=== PATIENT | female | born 1985 | race Caucasian/White ===

== ENCOUNTER 2019-03-15 14:21 | Emergency (ER) | payer BC, OTHER ==
[2019-03-15 14:36] VITALS: BP 112/68
--- NOTE | 2019-03-15 14:48 | UC ---
Skin Complaint HPI - HPI Summary HPI Summary: 33-year-old female presents with complaints of a tick bite to her right hip. States she discovered a tick this morning and removed it immediately. She believes it had been on for less than 24 hours however she cannot say this with certainty and is unsure if it was engorged. Patient is 10 weeks . - History of Current Complaint Chief Complaint: UCSkin Time Seen by Provider: 03/15/19 14:31 Stated Complaint: TICK RT HIP Hx Obtained From: Patient Hx Last Menstrual Period: 12/2018 Pain Intensity: 0 - Allergy/Home Medications Allergies/Adverse Reactions: Allergies Allergy/AdvReac Type Severity Reaction Status Date / Time No Known Allergies Allergy Verified 08/15/15 19:35 Home Medications: Home Medications Pnv No.95/Ferrous Fum/Folic AC [ Caplet] 1 tab PO MDD 1 03/15/19 [ History] PMH/Surg Hx/FS Hx/Imm Hx Previously Healthy: Yes - Denies significant PMH - Surgical History Surgical History: None - Family History Known Family History: Positive: Non-Contributory - Social History Occupation: Employed Full-time Lives: With Family Alcohol Use: None Substance Use Type: None Smoking Status (MU): Never Smoked Tobacco Review of Systems All Other Systems Reviewed And Are Negative: Yes Constitutional: Negative: Fever, Chills Skin: Positive: Other - See HPI ENT: Positive: Negative Respiratory: Positive: Negative Cardiovascular: Positive: Negative Gastrointestinal: Positive: Negative Genitourinary: Positive: Negative Musculoskeletal: Negative: Arthralgia, Myalgia Neurological: Positive: Negative Is Patient Immunocompromised?: No Physical Exam - Summary Physical Exam Summary: GENERAL APPEARANCE: Well developed, well nourished, alert and cooperative, and appears to be in no acute distress. CARDIAC: Normal S1 and S2. No S3, S4 or murmurs. Rhythm is regular. There is no peripheral edema, cyanosis or pallor. Extremities are warm and well perfused. Capillary refill is less than 2 seconds. Peripheral pulses intact. LUNGS: Clear to auscultation without rales, rhonchi, wheezing or diminished breath sounds. ABDOMEN: Positive bowel sounds. Soft, nondistended, nontender. No guarding or rebound. No masses or hepatosplenomegally. MUSKULOSKELETAL: ROM intact to all extremities. No joint erythema or tenderness. Normal muscular development. Normal gait. SKIN: 1.5 cm area of erythema with central area of excoriation noted to the right posterior hip. No evidence of retained mouthparts. Triage Information Reviewed: Yes Vital Signs: Initial Vital Signs Temp 98.3 F 03/15/19 14:29 Pulse 50 03/15/19 14:29 Resp 16 03/15/19 14:29 BP 112/68 03/15/19 14:29 Pulse Ox 100 03/15/19 14:29 Vital Signs Reviewed: Yes Course/Dx - Course Course Of Treatment: 33-year-old female presents with complaints of a tick bite to her right hip. States she discovered a tick this morning and removed it immediately. She believes it had been on for less than 24 hours however she cannot say this with certainty and is unsure if it was engorged. Patient is 10 weeks . Afebrile. Vital signs stable. Exam remarkable for a 1.5 cm area of erythema with central excoriation to the right posterior hip. There was no evidence of any retained mouthparts. Since the patient is prophylactic treatment with doxycycline is not recommended at this time. I have instructed the patient to monitor for signs and symptoms of Lyme disease for the next 3 weeks. She is to seek immediate medical attention should any of these occur. Patient verbalizes understanding and agrees with plan of care. - Differential Diagnoses - Skin Complaint Differential Diagnoses: Local Allergic Reaction, Tick Born Illness - Diagnoses Provider Diagnosis: Tick bite of right hip Discharge - Sign-Out/Discharge Documenting (check all that apply): Patient Departure All imaging exams completed and their final reports reviewed: No Studies - Discharge Plan Condition: Stable Disposition: HOME Patient Education Materials: Tick Bite (ED) Referrals: No Primary Care Phys,NOPCP [Primary Care Provider] - Additional Instructions: You appear to have completely removed the tick. Since you are it is not recommended that we use the antibiotic given for prevention of Lyme disease as it may have adverse effects on the fetus. You will want to monitor of signs of Lyme disease over the next 3 weeks including a bullseye rash, fever, flu- like illness, body aches, joint pain or swelling. You should seek immediate medical attention if any of these occur. - Billing Disposition and Condition Condition: STABLE Disposition: Home
== END 2019-03-15 14:54 | disposition home or self-care (01) ==
LOC: UCEAST 14:21
DX: O26.891 Other specified pregnancy related conditions, first trimester (principal); Z3A.10 10 weeks gestation of pregnancy; T63.481A Toxic effect of venom of other arthropod, accidental (unintentional), initial encounter; Y92.9 Unspecified place or not applicable
CPT/HCPCS: 99211; G0463

== ENCOUNTER 2019-10-23 09:58 | Inpatient (IN) | payer BC ==
[2019-10-23] MEDS ORDERED: Dinoprostone* 10 MG VAG.SUPP VAGINAL ONE (11:06)
[2019-10-23] MEDS ORDERED: Lactated Ringers 1000 ML Bag* 1,000 ML IV ONE (12:06)
[2019-10-23] MEDS ORDERED: Buffered Lidocaine 1% SYRIN* 1 ML/SYRINGE INTRADERM ONE (12:06)
--- NOTE | 2019-10-23 12:16 | HP ---
General Information - Reason for Visit Post dates for induction of labor - General Information Maternal Age: 34 Grav: 1 Para: 0 SAB: 0 IEA: 0 Estimated Due Date: 10/11/19 Determined By: LMP Maternal Blood Type and Rh: O Negative - Results this Serology/RPR Result: Non-Reactive Rubella Result: Immune HBsAg Result: Negative HIV Result: Negative GBS Culture Result: Positive Past Medical History Delivery History: See Records Delivery History Comment: No previous pregnancies Pertinent Past Medical History: Non-Contributory Past Medical History Comment: Asthma, exercise induced Pertinent Past Surgical History: None Pertinent Family History: See Records Family History Comment: Lymphoma Bipolar Parkinson's - Antepartal Records Antepartal Records: Reviewed, Complicated by: - Rh negative; GBS positive; 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) Review of Systems Constitutional: Comfortable CV Complaint: No Respiratory: Shortness of Breath: No Gastrointestinal: No Nausea/Vomiting, Normal Bowel Movement Genitourinary: No Dysuria, No Bleeding, No Leaking Fluid Musculoskeletal: No Complaint Neurological: No Headache, No Visual Changes Movement: Normal Exam Allergies/Adverse Reactions: Allergies No Known Allergies Allergy (Verified 08/15/15 19:35) BP 115/87 T 98.2 HR 76 - Measurements Height: 5 ft 6.5 in Weight: 186 lb Weight in lbs: [phone] Body Mass Index (BMI): 29.5 Pre- Weight: 150 lb Weight Gained This : 36 lbs and 0 ozs - Exam Breast: Breast Exam Deferred CVA: No CVA Tenderness Extremities: No Edema Heart: Normal Rhythm/Heart Sounds HEENT: No Significant Findings Lungs: Clear Bilaterally Rectal: Rectal Exam Deferred Reflexes: DTR 2+, - - no clonus Thyroid: - - Abdominal Exam Abdomen Exam: Non-Tender - Ultrasound/Biophysical Profile Ultrasound Status: Not Done Targeted Exam Findings Estimated Weight: 8lb Cervical Exam: Fingertip Effacement: 50% Station: -1 Presenting Part: Vertex Membrane Status: Intact Bleeding/Discharge: None EFM Findings - External Monitor Findings Baseline Heart Rate: 135 External Monitor Findings: Accelerations Present, No Pattern of Variable or Late Decelerations, Variability Moderate Contractions: None Assessment/Plan - Assessment IUP @ 41+5 weeks gestation for induction of labor. No evidence metabolic acidemia. Intact membranes - Obstetrical Risk Factors Obstetrical Risk Factors: GBS Positive - Plan Plan: Induction, Cervical Ripening, Admit - Anticipate Vaginal Delivery Plan Comment: PARQ discussion of cervidil for cervical ripening, patients in agreement. May consider continued cervical ripening after this dose. - Date/Time of Admission Date of Admission: 10/23/19 Time of Admission: 11:02
[2019-10-23] MEDS ORDERED: Lactated Ringers 1000 ML Bag* 1,000 ML IV SCH (13:00)
[2019-10-23 13:17] LABS: Urine Benzodiazepine Screen None Detected (None Detect); Urine Opiates Screen None Detected (None Detect)
[2019-10-23] MEDS ORDERED: diPHENhydraMINE PO* 50 MG PO PRN (21:01)
--- NOTE | 2019-10-23 21:38 | PN ---
Progress Note - Progress Note Date of Service: 10/23/19 Note: S: Feeling ok. Reports "menstrual-like" cramps, similar to what she generally experiences most evenings but overall still comfortable. O: VE deferred Cervidil in place FHT 125, +accels, no decels, mod birgit BP 138/76, T 98.7 A: IUP @ 41+5 weeks gestation for induction of labor GBS positive Intact membrane No evidence acidemia P: Discussed use of misoprostol if continued cervical ripening indicated after removal of Cervidil; patient in agreement. Would like to sleep some likely after removal. Also discussed possible use of Cook's catheter. Order in for Benadryl PRN for sleep.
[2019-10-24] MEDS ORDERED: Misoprostol TAB* 100 MCG ONE (06:00)
--- NOTE | 2019-10-24 10:06 | PN ---
Progress Note - Progress Note Date of Service: 10/24/19 Note: Pt breathing through ctx, but they are short in duration. Coping well. Ate breakfast, and slept last night. Will plan to recheck cervix around 1030 or 1100 and determine whether another dose of misoprostol is reasonable.
--- NOTE | 2019-10-24 11:51 | PN ---
Progress Note - Progress Note Date of Service: 10/24/19 SOAP: Subjective: Pt reports continued ctx, some stronger than others. [employer] Cook at bedside. Objective: Cervix: 4cm/ posterior/ 0 station/ 80%/ vtx/ palpable bag of hinson FHR: Baseline 125/ moderate variability/ + accels UCs: 2-3 minutes, moderate strength BP: 130/83, Temp: 98.3 Assessment: Pt making excellent progress. No evidence of acidemia. Plan: Pt with strong preference to avoid Pitocin. Will manage expectantly at this time. Can consider AROM if augmentation is necessary and pt declines Pitocin. Will start GBS prophylaxis. Anticipate progression to active labor and .
[2019-10-24] MEDS ORDERED: Penicillin G Potassium IV* 5,000,000 UNITS in NS 0.9% 100 ML* 100 ML IVPB ONE (12:30)
[2019-10-24 12:58] LABS: Hematocrit 36 % (35-47); Hemoglobin 12.5 g/dL (12.0-16.0); Mean Corpuscular HGB Conc 35 g/dL (31-36); Mean Corpuscular Hemoglobin 30 pg (27-31); Mean Corpuscular Volume 87 fL (80-97); Mean Platelet Volume 9.9 fL (7.4-10.4); Platelet Count 193 10^3/uL (150-450); Red Blood Count 4.13 10^6 /uL (3.70-4.87); Red Cell Distribution Width 13 % (10-15); White Blood Count 14.1 10^3/uL (3.5-10.8)
--- NOTE | 2019-10-24 16:22 | PN ---
Progress Note - Progress Note Date of Service: 10/24/19 Note: Pt reasonably comfortable, resting in bed in side-lying position. Ctx about every 5 minutes, FHR Category I. Pt declines cervical exam at this time, but agrees to have done in about a half hour. Will evaluate at that time and determine need for Pitocin augmentation.
[2019-10-24] MEDS: Penicillin G Potassium IV* 2,500,000 UNITS in NS 0.9% 100 ML* 100 ML IVPB SCH ×2 (16:59→21:20)
--- NOTE | 2019-10-24 18:11 | PN ---
Progress Note - Progress Note Date of Service: 10/24/19 SOAP: Subjective: Pt continues to report ctx, feels uncomfortable with them, still coping well. and book trimmer at bedside Objective: FHR: 120 baseline/ + accels/ no decels UCs: 3-5 minutes Cervix: 6cm/ 0 station/ posterior./ vtx/ 90% Assessment: Pt making change, although slowly. No evidence of acidemia. Plan: Discussed augmentation with Pitocin. Pt declines at this time. Other options include AROM, although as pt is primip and GBS positive, would rather consider Pitocin than AROM. However, AROM would not be unreasonable if pt continues to decline Pitocin. Pt will plan to ambulate and see if ctx increase in intensity prior to deciding on an approach to augmentation, if any.
--- NOTE | 2019-10-24 20:14 | PN ---
Progress Note - Progress Note Date of Service: 10/24/19 Note: Pt uncomfortable with ctx, coping well with good support from roll icer machine and . FHR 140 per doppler. SROM to meconium stained fluid. Cervical exam deferred at this time. Report to Larissa Veliz CNM to assume care of pt at this time.
--- NOTE | 2019-10-24 21:33 | PN ---
Progress Note - Progress Note Date of Service: 10/24/19 Note: Subjective: Pt coping well with contractions. Feeling rectal pressure with contractions. and lift team technician at bedside. asking about nitrous oxide. Objective: FHR: 120 baseline/ + accels/ no decels UCs: 3-5 minutes Cervix: 8cm/90%/0 station Assessment: Pt making appropriate cervical change. No evidence of acidemia. Plan: PARQ discussion about nitrous oxide for pain relief Pt undecided May opt to get back in tub Continue position changes, VE prn Anticipate
[2019-10-24] MEDS ORDERED: Oxytocin in LR* 20 UNITS/1,000 ML BAG IVPB ONE (22:45)
[2019-10-25] MEDS ORDERED: Ibuprofen TAB* 600 MG ONE (00:34)
[2019-10-25] MEDS ORDERED: RHO D Immune Globulin (HUMAN)* 300 MCG = 1,500 I.U. INJ IM ONE (00:35)
[2019-10-25] MEDS ORDERED: Glycerin ADULT SUPP PR PRN (00:35)
[2019-10-25] MEDS ORDERED: Witch Hazel PAD* JAR TOPICAL PRN (00:35)
--- NOTE | 2019-10-25 00:38 | PROCNOTE ---
[facility] OB: Delivery Note - Delivery A Date of : 10/24/19 Time of : 23:14 [place] Sex: Female Weight at : 8 lb Score 1 Minute: 9 Score 5 Minutes: 9 Gestational Age in Weeks and Days at Delivery: 41 Weeks and 6 Days Delivery Method: Spontaneous Vaginal Labor: Induced Did Patient attempt ?: N/A, No Previous Amniotic Fluid: Meconium Estimated Blood Loss: 400 Anesthesia/Analgesia: None Delivered By: Altagracia Veliz Nursery Level of Nursery: Regular/Bedside - Perineum Perineal Injury: 2nd Degree Perineal Injury Comment: 2nd and bilateral labial lacerations repaired under local anesthesia Perineal Repair: By Delivering Practioner - Events Delivery Events of Note: Pitocin Only After Delivery, Full Course of Antibiotics - Additional Delivery Notes Additional Delivery Notes: Normal spontaneous vertex delivery of live female, 8lbs and Apgars 9/9. Delivered right occipital-anterior (MOHINI), no nuchal cord, meconium stained fluid. Body delivered without difficulty. Baby placed on mothers abdomen. Cord clamped and cut by mother after pulsations ceased >5mins. Placenta delivered spontaneously via mckeon, appears intact, 3vc. Pitocin given via IVPB for active management of 3rd stage. Perineum and vagina inspected - bilateral labial lacerations noted and a second degree perineal laceration. Lacerations repaired under local anesthesia. Normal anatomy restored. Hemostatic. EBL 400mL. Mom and baby stable at time of note. Baby attempting to breastfeed.
[2019-10-25] MEDS: Ibuprofen TAB* 600 MG PO SCH ×3 (00:43→15:13)
[2019-10-25] MEDS ORDERED: Oxytocin in LR* 20 UNITS/1,000 ML BAG IVPB SCH (01:00)
[2019-10-25] MEDS ORDERED: Lactated Ringers 1000 ML Bag* 1,000 ML IV SCH (01:00)
[2019-10-25] MEDS ORDERED: Lidocaine 1% INJ* 10 MG/ML 30 ML SDV ONE (01:28)
[2019-10-25] MEDS: Acetaminophen TAB* 325 MG PO PRN (04:01)
[2019-10-25] MEDS ORDERED: Simethicone TAB* 80 MG TAB.CHEW PO SCH (08:30)
[2019-10-25] MEDS: Docusate CAP* 100 MG PO SCH ×2 (09:05→15:13)
[2019-10-26 06:08] LABS: Hematocrit 29 % (35-47); Hemoglobin 10.3 g/dL (12.0-16.0); Mean Corpuscular HGB Conc 35 g/dL (31-36); Mean Corpuscular Hemoglobin 31 pg (27-31); Mean Corpuscular Volume 87 fL (80-97); Mean Platelet Volume 9.5 fL (7.4-10.4); Platelet Count 183 10^3/uL (150-450); Red Blood Count 3.35 10^6 /uL (3.70-4.87); Red Cell Distribution Width 13 % (10-15); White Blood Count 12.2 10^3/uL (3.5-10.8)
[2019-10-26 07:41] LABS: ABS Eosinophils 0.2 10^3/ul (0-0.6); ABS Lymphocytes 1.8 10^3/ul (1.0-4.8); ABS Monocytes 0.9 10^3/ul (0-0.8); ABS Neutrophils 9.3 10^3/ul (1.5-7.7); Eosinophil % 1.5 %; Lymphocyte % 15.1 %
[2019-10-26] MEDS: Ibuprofen TAB* 600 MG PO SCH ×3 (08:13→15:13)
[2019-10-26] MEDS: Docusate CAP* 100 MG PO SCH ×4 (08:13→19:48)
[2019-10-26] MEDS: Ferrous Gluconate TAB* 324 MG TAB PO SCH ×2 (10:14→19:48)
[2019-10-26] MEDS: Dibucaine 1% 28.35 GM TUBE PR PRN ×2 (15:14→19:48)
[2019-10-26] MEDS: Acetaminophen TAB* 325 MG PO PRN (19:48)
[2019-10-27] MEDS: Ibuprofen TAB* 600 MG PO SCH ×2 (00:34→08:21)
[2019-10-27] MEDS: Ferrous Gluconate TAB* 324 MG TAB PO SCH (08:21)
[2019-10-27] MEDS: Docusate CAP* 100 MG PO SCH (08:21)
[2019-10-27 12:59] VITALS: BP 112/85
== END 2019-10-27 14:06 | disposition home or self-care (01) | DRG 560 ==
LOC: MCHOBOUT 09:58 → MCHOB 11:02
PROVIDERS: ADMIT Midwife; ATTEND Midwife
PROC: 10E0XZZ Delivery of Products of Conception, External Approach (ICD-10-PCS; principal; 2019-10-24)
PROC: 3E033VJ Introduction of Other Hormone into Peripheral Vein, Percutaneous Approach (ICD-10-PCS; 2019-10-24)
PROC: 0KQM0ZZ Repair Perineum Muscle, Open Approach (ICD-10-PCS; 2019-10-24)
DX: O48.0 Post-term pregnancy (principal); Z37.0 Single live birth; Z3A.41 41 weeks gestation of pregnancy; O70.1 Second degree perineal laceration during delivery; O99.824 Streptococcus B carrier state complicating childbirth; O77.0 Labor and delivery complicated by meconium in amniotic fluid
CPT/HCPCS: 36415; 80307; 85025; 85027; 86850; 86870; 86880; 86900; 86901; A9270-GY; J2540; S0191

== ENCOUNTER 2024-05-03 07:41 | Inpatient (IN) ==
[2024-05-03] MEDS ORDERED: Lidocaine 1% VIAL 10 MG/ML 30 ML VIAL INJ PRN (07:54)
[2024-05-03 08:52] LABS: ABS Eosinophils 0.2 10^3/uL (0.0-0.5); ABS Lymphocytes 1.2 10^3/uL (1.0-4.8); ABS Monocytes 0.8 10^3/uL (0.0-0.9); ABS Neutrophils 6.4 10^3/uL (1.5-7.6); ABS Nucleated RBC 0.05 10^3/ul; Eosinophil % 2.6 %; Hematocrit 35.7 % (35-45); Hemoglobin 12.7 g/dL (11.5-14.3); Lymphocyte % 14.2 %; Mean Corpuscular Hemoglobin 31.6 pg (27-33); Mean Corpuscular Hgb Conc 35.7 g/dL (31-36); Mean Corpuscular Volume 88.7 fL (80-97); Mean Platelet Volume 10.4 fL (7.5-11.2); Nucleated Red Blood Cells % 0.6 %/100WBC (0.0-0.8); Platelet Count 134 10^3/uL (150-450); Red Blood Count 4.02 10^6/uL (3.63-4.92); Red Cell Distribution Width 13.7 % (12-17); White Blood Count 8.7 10^3/uL (3.8-11.8)
[2024-05-03] MEDS ORDERED: Ondansetron 4 mg VIAL 2 MG/ML 2 ml VIAL ONE (10:40)
[2024-05-03] MEDS ORDERED: Morphine PF AMP (0.5MG/ML) 5 MG/10 ML AMP ONE (10:40)
[2024-05-03] MEDS ORDERED: Phenylephrine IV 10 MG/ML 1 ml VIAL ONE (10:40)
[2024-05-03] MEDS ORDERED: Oxytocin 10 UNITS/ML 1 ML VIAL ONE (10:40)
[2024-05-03] MEDS ORDERED: Bupivacaine-MPF SPINAL 7.5 MG/ML - 2ML AMP ONE (10:43)
[2024-05-03] MEDS: Sodium Citrate/Citric Acid LIQ 15 ML UDC PO ONE (10:49)
[2024-05-03] MEDS: ceFOXitin 2 GM IVPREMIX 2 GM/50 ML BAG IVPB ONE (10:49)
[2024-05-03] MEDS ORDERED: Glycopyrrolate IV 0.2 MG/ML 1 ML VIAL ONE (11:05)
[2024-05-03] MEDS ORDERED: Sodium Chloride 0.9% 10 ML ONE (11:06)
[2024-05-03] MEDS: Methylergonovine 0.2 mg AMPULE 1 ml AMP ONE (11:46)
[2024-05-03 12:16] LABS: Urine Appearance Clear; Urine Bilirubin Negative (Negative); Urine Blood Trace (Negative); Urine Color Yellow; Urine Glucose Negative (Negative); Urine Ketones Negative (Negative); Urine Nitrite Negative (Negative); Urine Protein Negative (Negative); Urine Specific Gravity 1.014 (1.002-1.030); Urine Urobilinogen Negative (Negative)
[2024-05-03] MEDS ORDERED: Dibucaine 1% OINT 28.35 GM TUBE PR PRN (12:22)
[2024-05-03] MEDS ORDERED: Witch Hazel PAD JAR TOPICAL PRN (12:22)
[2024-05-03] MEDS ORDERED: Glycerin ADULT 2.4 gm SUPP PR PRN (12:22)
[2024-05-03] MEDS ORDERED: RHO D Immune Globulin (HUMAN) 300 MCG = 1,500 I.U. INJ IM PRN (12:22)
[2024-05-03] MEDS: Lactated Ringers 1000 ml BAG 1,000 ML IV ONE (12:45)
[2024-05-03] MEDS: Buffered Lidocaine 1% SYRIN 1 ml INTRADERM ONE (12:45)
[2024-05-03] MEDS: Lactated Ringers 1000 ml BAG 1,000 ML IV SCH (12:46)
[2024-05-03] MEDS: Methylergonovine 0.2 mg AMPULE 1 ml AMP IM ONE (12:52)
[2024-05-03] MEDS: Oxytocin in LR 20,000 MILLI.UNIT/1,000 ML BAG IV ONE (12:52)
[2024-05-03 13:00] LABS: Urine Benzodiazepine Screen None Detected (None Detect); Urine Cannabinoids Screen None Detected (None Detect); Urine Opiates Screen None Detected (None Detect)
[2024-05-03] MEDS ORDERED: Lactated Ringers 1000 ml BAG 1,000 ML IV SCH (13:00)
[2024-05-03] MEDS ORDERED: Ondansetron 4 mg VIAL 2 MG/ML 2 ml VIAL IV PRN (13:03)
[2024-05-03] MEDS ORDERED: Metoclopramide 5 MG/ML VIAL (10 mg) IV PRN (13:03)
[2024-05-03] MEDS ORDERED: Naloxone 0.4 mg VIAL 0.4 mg/ml 1 ml VIAL IV PUSH PRN (13:03)
[2024-05-03] MEDS ORDERED: Acetaminophen IV 1 GM/100ML 1,000 MG/100 ML BAG IV PRN (13:03)
[2024-05-03] MEDS: Oxytocin in LR 20,000 MILLI.UNIT/1,000 ML BAG IV SCH (13:12)
[2024-05-04 08:36] LABS: ABS Eosinophils 0.2 10^3/uL (0.0-0.5); ABS Lymphocytes 0.9 10^3/uL (1.0-4.8); ABS Monocytes 0.7 10^3/uL (0.0-0.9); ABS Neutrophils 8.9 10^3/uL (1.5-7.6); ABS Nucleated RBC 0.01 10^3/ul; Eosinophil % 1.9 %; Hematocrit 32.2 % (35-45); Hemoglobin 11.7 g/dL (11.5-14.3); Lymphocyte % 8.8 %; Mean Corpuscular Hemoglobin 32.5 pg (27-33); Mean Corpuscular Hgb Conc 36.4 g/dL (31-36); Mean Corpuscular Volume 89.4 fL (80-97); Mean Platelet Volume 9.8 fL (7.5-11.2); Platelet Count 117 10^3/uL (150-450); Red Blood Count 3.61 10^6/uL (3.63-4.92); Red Cell Distribution Width 13.9 % (12-17); White Blood Count 10.7 10^3/uL (3.8-11.8)
[2024-05-04] MEDS: Measles, Mumps,Rubella VACC 0.5 ML/VIAL SUBCUT ONE (17:53)
[2024-05-06 08:45] VITALS: BP 106/61
== END 2024-05-06 12:45 | disposition home or self-care (01) | DRG 785 ==
LOC: MCHOB 07:41
PROVIDERS: ADMIT Obstetrics & Gynecology; ATTEND Obstetrics & Gynecology